=== PATIENT | male | born 1970 | race Native Hawaiian/Other Pacific Islander ===

== ENCOUNTER 2017-02-28 12:59 | Emergency (ER) | payer OTHER ==
[~2017-02-28] VITALS: Ht 172.7 cm; Wt 154.2 kg
[~2017-02-28 12:59] MED LIST: ATEN25TA21 PO; BUSP5TAB2 PO; CARAFATE1 GM PO; CARTIA XT240 MG/24 PO; DULO60CA2 PO; ELIQUIS5 MG OR; ESOMEPRAZOLE MA40 MG PO; FURO20TA67 PO; LAMICTAL25 MG PO; LINZESS290 MCG PO; LISI20TA11 PO; LUBI24CA PO; MOBIC15 MG PO; PHENTERMINE37.5 MG PO; POTASSIUM25 MEQ PO; RANITIDINE 150150 MG PO; SIMV40TA57 PO; XANAX XR1 MG PO; ZEBUTAL 50-325-1 CAP PO
[2017-02-28 13:31] LABS: PLATELET COUNT 99 K/uL (142-355)
[2017-02-28 13:32] LABS: POTASSIUM 3.5 mmol/L (3.6-5.2); SODIUM 134 mmol/L (136-145)
[2017-02-28 13:43] LABS: PARTIAL THROMBOPLASTIN TIME 32.8 SECONDS (24.5-33.6)
[2017-02-28 15:47] VITALS: BP 151/93; TEMP 98
== END 2017-02-28 15:40 | disposition short-term general hospital (02) ==
LOC: ED 12:59
DX: R07.89 Other chest pain (principal); I20.0 Unstable angina; R94.31 Abnormal electrocardiogram [ECG] [EKG]; R00.0 Tachycardia, unspecified
CPT/HCPCS: 80053; 82550; 82553; 83880; 84484; 85027; 85610; 85730; 93005; 96372; 99285; J1650

== ENCOUNTER 2017-03-09 17:54 | Emergency (ER) | payer OTHER ==
[~2017-03-09] VITALS: Ht 172.7 cm; Wt 154.7 kg
[2017-03-09 18:00] VITALS: BP 196/113; TEMP 98.3
[2017-03-09 18:24] LABS: PLATELET COUNT 166 K/uL (142-355)
[2017-03-09 18:56] LABS: PARTIAL THROMBOPLASTIN TIME 25.3 SECONDS (24.5-33.6)
[2017-03-09 19:03] LABS: POTASSIUM 4.1 mmol/L (3.6-5.2)
== END 2017-03-09 21:43 | disposition short-term general hospital (02) ==
LOC: ED 17:54
DX: R07.89 Other chest pain (principal); Z98.890 Other specified postprocedural states; I82.621 Acute embolism and thrombosis of deep veins of right upper extremity; R00.0 Tachycardia, unspecified; R73.9 Hyperglycemia, unspecified
CPT/HCPCS: 36415; 80053; 82550; 83036; 84484; 85027; 85610; 85730; 93005; 96374; 96376; 99285; J2270; J2405

== ENCOUNTER 2017-03-09 21:53 | Outpatient (CLI) | payer OTHER | END 2017-03-09 23:10 | disposition short-term general hospital (02) | LOC: AMB 21:53 | DX: R07.89 Other chest pain (principal); Z98.890 Other specified postprocedural states; I82.621 Acute embolism and thrombosis of deep veins of right upper extremity; R00.0 Tachycardia, unspecified; R73.9 Hyperglycemia, unspecified | CPT/HCPCS: A0425; A0427 ==